=== PATIENT | female | born 1955 | race Caucasian/White ===

== ENCOUNTER 2025-06-15 08:42 | Day surgery (SDC) | payer MEDICARE ==
[2025-06-15] MEDS: Lactated Ringers 1,000 ML IV SCH (09:40)
[2025-06-15] MEDS ORDERED: Propofol 200 MG/20 ML SDV ONE (11:26)
[2025-06-15] MEDS ORDERED: fentaNYL 100 MCG/2 ML SDV ONE (11:26)
== END 2025-06-15 13:43 | disposition home or self-care (01) ==
LOC: JP.SDS 08:42
PROVIDERS: ATTEND Surgery
DX: Z12.11 Encounter for screening for malignant neoplasm of colon (principal); E78.00 Pure hypercholesterolemia, unspecified; Z88.8 Allergy status to other drugs, medicaments and biological substances; Z79.899 Other long term (current) drug therapy
CPT/HCPCS: 00812; G0121; J2704; J3010; J7120